=== PATIENT | male | born 1950 | race Asian ===

== ENCOUNTER 2017-03-24 10:30 | Inpatient (IN) | payer MEDICARE, MEDICAID ==
[~2017-03-24] VITALS: Ht 162.6 cm; Wt 65.7 kg
[~2017-03-24 10:30] MED LIST: ALBU8.5H8 IH; ALLO300 PO; AMIO200T2 PO; AMOX-462 PO; ASPI-1182 PO; AZIT250T9 PO; BECL8.7A5 IH; BIMA12.5OS; FAMO20 PO; ISOR40SR PO; METO25 PO; PRAS10TA6; SIMV-260 PO; TIMO.5OS
[2017-03-24] MEDS ORDERED: BECL8.7A7 IH (10:40)
[2017-03-24] MEDS ORDERED: XALA2.5OS OU (10:40)
[2017-03-24] MEDS ORDERED: TICA60TA PO (10:40)
[2017-03-24] MEDS ORDERED: TAMS0.4C32 PO (10:40)
[2017-03-24] MEDS ORDERED: BUDE180H IH (10:40)
[2017-03-24] MEDS ORDERED: CARV6 PO (10:40)
[2017-03-24] MEDS ORDERED: RANO500T3 PO (10:40)
[2017-03-24] MEDS ORDERED: DSS100 PO (10:40)
[2017-03-24] MEDS ORDERED: SACU1TAB PO (10:40)
[2017-03-24 11:09] LABS: BASOPHILS # (AUTO) 0.01 K/uL (0.00-0.20); BASOPHILS % (AUTO) 0.1 % (0.0-2.0); EOSINOPHILS % (AUTO) 0 % (1.0-6.0); HEMATOCRIT 37.3 % (41-53); HEMOGLOBIN 12.7 g/dL (13.5-17.5); LYMPHOCYTES # (AUTO) 0.6 K/uL (1.0-4.8); LYMPHOCYTES % (AUTO) 6.3 % (22.0-44.0); MEAN CORPUSCULAR HEMOGLOBIN 35.8 pg (26.0-34.0); MEAN CORPUSCULAR HGB CONC 34.1 G/dL (31.0-37.0); MEAN CORPUSCULAR VOLUME 105 fL (80-100); MONOCYTES # (AUTO) 0.7 K/uL (0.1-1.0); MONOCYTES % (AUTO) 6.5 % (2.0-9.0); NEUTROPHILS # (AUTO) 8.9 K/uL (1.8-7.7); NEUTROPHILS % (AUTO) 87.2 % (40.0-70.0); PLATELET COUNT (AUTO) 113 K/uL (150-450); RED BLOOD CELL COUNT(AUTO) 3.55 MIL/uL (4.50-5.90); RED CELL DISTRIBUTION WIDTH 14.9 % (11.5-14.5); WHITE BLOOD COUNT (AUTO) 10.2 K/uL (4.5-11.0)
[2017-03-24 11:23] LABS: ANION GAP 10 mmol/L (8-16); CALCIUM, TOTAL 7.7 mg/dL (8.8-10.5); CARBON DIOXIDE 25 mmol/L (22-29); CHLORIDE 98 mmol/L (98-107); CREATININE 1.19 mg/dL (0.60-1.30); GLOMERULAR FILTR. RATE CALC > 60 mL/min (>60); POTASSIUM 3.6 mmol/L (3.5-5.1); SODIUM SERUM 133 mmol/L (136-145); UREA NITROGEN, BLOOD 17 mg/dL (7-18)
[2017-03-24 11:47] LABS: ALANINE AMINOTRANSFERASE 22 U/L (12-78); ASPARTATE AMINOTRANSFERASE 16 U/L (15-37); BILIRUBIN,TOTAL 0.8 mg/dL (0.1-1.0); CREATINE KINASE, TOTAL 86 U/L (39-308); TOTAL PROTEIN, SERUM 6.3 g/dL (6.4-8.2)
[2017-03-24 11:48] LABS: CREATINE KINASE MB < 0.5 ng/mL (0-5)
[2017-03-24 11:55] LABS: RBC MORPHOLOGY COMMENT ABNORMAL RBC MORPH
[2017-03-24] MEDS ORDERED: SODIUM CHLORIDE 0.9% 1,000 ML IV ONE (12:30)
[2017-03-24] MEDS ORDERED: ONDANSETRON HCL 4 MG/2 ML VIAL IVP PRN ×2 (12:45→19:15)
[2017-03-24] MEDS ORDERED: ACETAMINOPHEN 325 MG TABLET PO PRN ×2 (12:45→19:15)
[2017-03-24 15:28] VITALS: BP 91/53
[2017-03-24 15:56] VITALS: BP 102/52
[2017-03-24 18:39] VITALS: BP 114/57
[2017-03-24] MEDS ORDERED: MAGNESIUM HYDROXIDE SUSPENSION 30 ML UDCUP PO PRN (19:15)
[2017-03-24] MEDS ORDERED: OxyCODONE HCL/ACETAMINOPHEN 5-325 MG TABLET PO PRN ×2 (19:15)
[2017-03-24] MEDS ORDERED: 0.9% SODIUM CHLORIDE 10 ML SYRINGE IVP PRN (19:15)
[2017-03-24 19:52] VITALS: BP 109/58
[2017-03-24] MEDS: ALBUTEROL SULFATE 2.5 MG/0.5 ML NEB SOLUTION NEB PRN (21:07)
[2017-03-24] MEDS: IPRATROPIUM BROMIDE 0.5 MG/2.5 ML NEB SOLUTION NEB PRN (21:07)
[2017-03-24] MEDS: DOCUSATE SODIUM 100 MG CAPSULE PO SCH (21:43)
[2017-03-24] MEDS: PANTOPRAZOLE SODIUM 40 MG/VIAL IVP SCH (21:44)
[2017-03-25] VITALS (7 sets, daily range): BP systolic 105–138; BP diastolic 53–74
[2017-03-25] MEDS: IPRATROPIUM BROMIDE 0.5 MG/2.5 ML NEB SOLUTION NEB SCH ×4 (02:41→20:00)
[2017-03-25] MEDS: ALBUTEROL SULFATE 2.5 MG/0.5 ML NEB SOLUTION NEB SCH ×4 (02:41→20:00)
[2017-03-25 06:40] LABS: EOSINOPHILS % (AUTO) 0.1 % (1.0-6.0); HEMATOCRIT 37.8 % (41-53); LYMPHOCYTES % (AUTO) 11.8 % (22.0-44.0); MEAN CORPUSCULAR HEMOGLOBIN 36.3 pg (26.0-34.0); MEAN CORPUSCULAR HGB CONC 34.5 G/dL (31.0-37.0); MEAN CORPUSCULAR VOLUME 105 fL (80-100); MONOCYTES # (AUTO) 0.6 K/uL (0.1-1.0); MONOCYTES % (AUTO) 7.3 % (2.0-9.0); NEUTROPHILS # (AUTO) 6.9 K/uL (1.8-7.7); NEUTROPHILS % (AUTO) 80.8 % (40.0-70.0); PLATELET COUNT (AUTO) 129 K/uL (150-450); RED BLOOD CELL COUNT(AUTO) 3.59 MIL/uL (4.50-5.90); RED CELL DISTRIBUTION WIDTH 14.8 % (11.5-14.5); WHITE BLOOD COUNT (AUTO) 8.5 K/uL (4.5-11.0)
[2017-03-25 07:04] LABS: ANION GAP 7 mmol/L (8-16); CALCIUM, TOTAL 8.1 mg/dL (8.8-10.5); CARBON DIOXIDE 28 mmol/L (22-29); CHLORIDE 97 mmol/L (98-107); CREATININE 1.03 mg/dL (0.60-1.30); GLOMERULAR FILTR. RATE CALC > 60 mL/min (>60); POTASSIUM 3.6 mmol/L (3.5-5.1); SODIUM SERUM 132 mmol/L (136-145); UREA NITROGEN, BLOOD 15 mg/dL (7-18)
[2017-03-25 07:57] LABS: RBC MORPHOLOGY COMMENT ABNORMAL RBC MORPH
[2017-03-25] MEDS: DOCUSATE SODIUM 100 MG CAPSULE PO SCH ×2 (09:14→21:00)
[2017-03-25] MEDS: PANTOPRAZOLE SODIUM 40 MG/VIAL IVP SCH (09:14)
[2017-03-26] MEDS: IPRATROPIUM BROMIDE 0.5 MG/2.5 ML NEB SOLUTION NEB SCH ×3 (01:18→13:31)
[2017-03-26] MEDS: ALBUTEROL SULFATE 2.5 MG/0.5 ML NEB SOLUTION NEB SCH ×3 (01:18→13:31)
[2017-03-26] MEDS: ALBUTEROL SULFATE 2.5 MG/0.5 ML NEB SOLUTION NEB PRN (04:16)
[2017-03-26] MEDS: IPRATROPIUM BROMIDE 0.5 MG/2.5 ML NEB SOLUTION NEB PRN (04:16)
[2017-03-26 04:50] VITALS: BP 128/74
[2017-03-26 07:57] VITALS: BP 126/73
[2017-03-26] MEDS: PANTOPRAZOLE SODIUM 40 MG/VIAL IVP SCH (08:05)
[2017-03-26] MEDS: DOCUSATE SODIUM 100 MG CAPSULE PO SCH (08:05)
[2017-03-26 11:17] VITALS: BP 126/68
== END 2017-03-26 13:45 | disposition home or self-care (01) | DRG 312 ==
LOC: EMS 10:30 → AHU 13:12 → 5N 18:21
PROVIDERS: ADMIT Hospitalist; ATTEND Hospitalist
DX: I95.1 Orthostatic hypotension (principal); E44.0 Moderate protein-calorie malnutrition; I50.9 Heart failure, unspecified; I11.0 Hypertensive heart disease with heart failure; R00.1 Bradycardia, unspecified; Z68.24 Body mass index [BMI] 24.0-24.9, adult; R42 Dizziness and giddiness; K21.9 Gastro-esophageal reflux disease without esophagitis; J45.909 Unspecified asthma, uncomplicated; I25.10 Atherosclerotic heart disease of native coronary artery without angina pectoris; E78.00 Pure hypercholesterolemia, unspecified; N40.0 Benign prostatic hyperplasia without lower urinary tract symptoms; M10.9 Gout, unspecified; D64.9 Anemia, unspecified; H40.9 Unspecified glaucoma; Z95.1 Presence of aortocoronary bypass graft; Z79.899 Other long term (current) drug therapy; Z79.82 Long term (current) use of aspirin
CPT/HCPCS: 93005; 94640; 99285; C9113; J7030